=== PATIENT | female | born 1970 | race Caucasian/White ===

== ENCOUNTER 2022-11-22 10:07 | Emergency (ER) | payer OTHER, SELFPAY ==
--- NOTE | ~2022-11-22 | XR_ITS ---
EXAMINATION: XR shoulder RT min 2V INDICATION: Right shoulder pain TECHNIQUE: Four views of the right shoulder are submitted. COMPARISON: None FINDINGS: Normal alignment. No acute fracture. There is an old healed fracture of the right clavicle. 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 The glenohumeral joint is unremarka ble. Soft tissues are unremarkable. IMPRESSION: 1. No acute osseous abnormality. Reviewed, dictated and finalized at location A.
--- NOTE | ~2022-11-22 | XR_ITS ---
EXAMINATION: XR clavicle RT INDICATION: Right shoulder pain TECHNIQUE: Two views of the right clavicle are obtained. COMPARISON: 11/22/2022 FINDINGS: There is a chronic, healed fracture of the right clavicle with deformity. No acute fracture is identified. There is moderate osteoarthritis at the acromioclavicular joint. IMPRESSION: 1. No acute osseous abnormality. Reviewed, dictated and finalized at location A.
[2022-11-22 10:08] VITALS: BP 144/86; PULSE 91; RESP 16; TEMP 37; O2SAT 97
[2022-11-22] MEDS: HYDROcodone/acetaminophen (*CRX) 5-325 MG TABLET 1 TAB PO (11:19)
[2022-11-22] MEDS: KETOROLAC 30 MG/ML VIAL (*BKC) IM (11:20)
--- NOTE | 2022-11-22 11:21 | ED.GENADULT ---
HPI - General Adult General Chief complaint: Extremity Injury, Upper Stated complaint: right shoulder pain Time Seen by Provider: 11/22/22 10:37 History of Present Illness HPI narrative: Nell Man is a 52 y/o female who presents today with reports of having severe pain to her right clavicle/right shoulder that started suddenly 3 days ago when she attempted to put her heavy bag over her shoulder. She reports history of right clavicle fracture a few years ago. She reports the the pain has progressively worsened along with her ROM. Moving her arm makes her pain worse, she has not found anything that makes her pain better. Related Data Allergies Allergy/AdvReac Type Severity Reaction Status Date / Time amoxicillin Allergy Rash Verified 11/22/22 10:07 Review of Systems Review of Systems: CONSTITUTIONAL: Denies fever, chills, or sweats. EYES: Denies visual changes, redness, or discharge. ENT: Denies rhinorrhea, congestion, sore throat, or otalgia. CARDIOVASCULAR: Denies chest pain, palpitations, or edema. RESPIRATORY: Denies cough or dyspnea. GASTROINTESTINAL: Denies abdominal pain, nausea, vomiting, or diarrhea. GENITOURINARY: Denies dysuria or hematuria. SKIN: Denies rash or itching. MUSCULOSKELETAL: Denies back pain, Complains of right shoulder pain that is worse with movement and ROM NEUROLOGIC: Denies headache, numbness, dizziness, or weakness. PSYCHIATRIC: Denies anxiety or depression. Exam Narrative: GENERAL: Well-appearing, well-nourished, and in no acute distress. HEAD: Normocephalic, atraumatic. EYES: PERRLA and EOMI. ENT: Nares clear, no rhinorrhea or epistaxis. Mucous membranes moist. Oropharynx without tonsillar hypertrophy exudate or other lesions. Bilateral TMs pearly tam nonbulging NECK: Supple. No adenopathy or masses. No carotid bruits or JVD CHEST: Clear to auscultation. No respiratory distress. No wheezes rales or rhonchi HEART: Regular rate and rhythm. No murmur heard. Normal peripheral pulses. ABDOMEN: Soft, nontender, nondistended, normal active bowel sounds. EXTREMITIES: swelling noted around right shoulder, pain with palpation, ROM intact with elbow, distal pulses present, pain noted to distal right clavicle. SKIN: Warm, dry, no rash. NEURO: No focal deficits. Alert and oriented x3. PSYCH: Normal mood and affect. Course Vital Signs Vital signs: Vital Signs Temperature 37.0 C 11/22/22 10:08 Pulse Rate 91 11/22/22 10:08 Respiratory Rate 16 11/22/22 10:08 Blood Pressure 144/86 H 11/22/22 10:08 Pulse Oximetry 97 11/22/22 10:08 Temperature 37.0 C 11/22/22 10:08 Pulse Rate 91 11/22/22 10:08 Respiratory Rate 16 11/22/22 10:08 Blood Pressure 144/86 H 11/22/22 10:08 Pulse Oximetry 97 11/22/22 10:08 Medical Decision Making MDM Narrative Medical decision making narrative: swelling noted around right shoulder, pain with palpation, ROM intact with elbow, distal pulses present, pain noted to distal right clavicle. Denies being able to lift shoulder Denies any specific trauma before the pain started on Thursday 3 days ago. Lung sounds clear, No obvious erythema/ecchymosis noted. Plan to check x ray of clavicle and shoulder and treat her pain. Differential Diagnosis Differential Diagnosis: Concern for : Clavicle fracture/ shoulder dislocation/ rotator cuff injury/ Vital Signs Vital Signs: Vital Signs Temperature 37.0 C 11/22/22 10:08 Pulse Rate 91 11/22/22 10:08 Respiratory Rate 16 11/22/22 10:08 Blood Pressure 144/86 H 11/22/22 10:08 Pulse Oximetry 97 11/22/22 10:08 Temperature 37.0 C 11/22/22 10:08 Pulse Rate 91 11/22/22 10:08 Respiratory Rate 16 11/22/22 10:08 Blood Pressure 144/86 H 11/22/22 10:08 Pulse Oximetry 97 11/22/22 10:08 Vitals reviewed by me. Imaging Data My impression: Impressions Clavicle X-Ray 11/22/22 11:23 IMPRESSION: 1. No acute osseous abnormality. Carolyn
--- NOTE | 2022-11-22 11:23 | PC.NURSE ---
patient declined to take muscle relaxer due to concern that it would make her too drowsy.
== END 2022-11-22 12:39 | disposition home or self-care (01) ==
PROVIDERS: Emergency Provider Nurse Practitioner Family
DX: M19.011 Primary osteoarthritis, right shoulder (principal)
CPT/HCPCS: 73000; 73030; 96372; 99283; A9270; J1885

== ENCOUNTER 2024-03-23 11:30 | Emergency (ER) | payer OTHER, SELFPAY ==
--- NOTE | ~2024-03-23 | XR_ITS ---
EXAMINATION: XR chest 2V DATE: 03/23/2024 12:22 INDICATION: Central to left-sided chest pain. TECHNIQUE: Frontal and lateral views of the chest were obtained. COMPARISON: None. FINDINGS: Calcified bilateral lung nodules and calcified hilar and mediastinal lymph nodes are consis tent with old granulomatous disease. No pleural effusion or pneumothorax. The heart size is normal. T here is an old healed fracture of right clavicle. IMPRESSION: 1. No acute cardiopulmonary disease. Reviewed, dictated and finalized at location A.
--- NOTE | 2024-03-23 11:31 | ECG_ITS ---
Test Date: 2024-03-23 11:37:48 Measurements Intervals [place] Rate: 74 P: 62 NV: 159 QRS: 49 QRSD: 81 T: 42 QT: 368 QTc: 410 Interpretive Statements SINUS RHYTHM BASELINE ARTIFACT- I, III, AVR, AVL NORMAL ECG No previous ECG available for comparison Electronically Signed On 03-23-2024 11:47:01 CDT by Torito Phan D.O.
[2024-03-23 11:36] VITALS: BP 153/89; PULSE 86; RESP 16; TEMP 36.7; O2SAT 100
--- NOTE | 2024-03-23 11:43 | ED.CHESTPAIN ---
HPI - Chest Pain General Chief Complaint: Chest Pain Stated Complaint: CP Time Seen by Provider: 03/23/24 11:47 Patient with periodic chest pain since Thursday. Patient reports she was having sex felt her heart racing dyspnea chest pain substernal sometimes radiating underneath the left breast to the long time to calm down and return to normal. Throughout the day Thursday she had a return palpitations tachycardia chest pounding and dyspnea with mild exertion. Since then patient has had occasional brief episodes of central or under left breast chest tightness without diaphoresis dyspnea. These are not episodes related to activity and sometimes happen at rest. One also woke her up in the middle of the night randomly. Patient thinks she may be experiencing anxiety wants to get checked out. She does have significant Family history early CO multiple family members, mother of CO young as well. Source: patient Limitations: no limitations History of Present Illness HPI narrative: This is a 53-year-old female patient with past medical history of IBS is to emergency department complaining of intermittent chest pain she describes as a tightness ongoing for the last 5 days. Patient concerned because a family history 2 brothers with MIs under the age of 50, mother of CO age 73 and grandmother of CO at age 76. Initial episode was associated with dyspnea, ongoing episodes no dyspnea. No calf pain swelling warmth or erythema. MD complaint: chest pain and other (Chest tightness) Pertinent past history: other (IBS) Onset (ago): day(s) (5) Timing of current episode: episodic Prior episodes: No Onset: during exertion Pain location: lateral and other (Midsternal) Pain radiation: none Severity: moderate Quality: tightness Relieving factors: nothing Exacerbating factors: nothing Context: other (No recent illness) Associated symptoms: palpitations Treatment prior to arrival: none Risk Factors Coronary artery disease risk factors: none Thoracic aortic dissection risk factors: none Related Data Allergies Allergy/AdvReac Type Severity Reaction Status Date / Time amoxicillin Allergy Rash Verified 11/22/22 10:07 Review of Systems Review of Systems: All systems reviewed & are unremarkable except as noted in HPI and below PMFSH Past Medical History Medical History IBS (irritable bowel syndrome) Family History Family History Mother Acute myocardial infarction Sibling Acute myocardial infarction Grandparent Acute myocardial infarction Sibling Acute myocardial infarction Exam Narrative: GENERAL: Well-appearing, well-nourished, and in no acute distress. HEAD: Normocephalic, atraumatic. ENT:? Mucous membranes moist. CHEST: Clear to auscultation.? No respiratory distress. HEART: Regular rate and rhythm. ? Normal peripheral pulses. ABDOMEN: Soft, nontender, nondistended. EXTREMITIES: Normal range of motion. No peripheral edema. Negative Homans SKIN: Warm dry normal color NEURO: Alert and oriented x3. PSYCH: Normal mood and affect Course Course Emergency Course: EKG obtained showing sinus rhythm no STEMI. Cardiac labs obtained from triage. Lab results are all unremarkable noncontributory. No evidence of congestive heart failure. Chest x-ray with calcified nodules consistent with old granulomatous disease but no active disease. Suspect patient is experiencing either paroxysmal tachy dysrhythmia verses anxiety related recurrence of pain. Will recommend Holter monitor verses 30 day event monitor per primary care. Vital Signs Vital signs: Vital Signs Temperature 36.7 C 03/23/24 11:36 Pulse Rate 86 03/23/24 11:36 Respiratory Rate 16 03/23/24 11:36 Blood Pressure 153/89 H 03/23/24 11:36 Pulse Oximetry 100 03/23/24 11:36 Oxygen Delivery Room Air 03/23/24 11:36
[2024-03-23 12:00] LABS: Basophils Percent Auto 0.3 % (0.2-1.2); Eosinophils Absolute Auto 0.1 K/mm3 (0-0.3); Eosinophils Percent Auto 0.8 % (0-4.4); Hematocrit 44.6 % (37.0-47.0); Hemoglobin 15.4 g/dL (12.0-15.0); Immature Granulocyte Absolute 0.01 K/mm3 (0.00-0.031); Immature Granulocyte Percent A 0.2 % (0-0.5); Lymphocytes Absolute Auto 1.53 K/mm3 (0.9-3.2); Mean Corpuscular HGB Conc 34.5 g/dl (32-36); Mean Corpuscular Hemoglobin 31.3 pg (26-34); Mean Corpuscular Volume 90.7 fl (80-100); Mean Platelet Volume 10.7 fl (7.4-10.4); Monocytes Absolute Auto 0.4 K/mm3 (0.1-0.6); Monocytes Percent Auto 5.9 % (2.6-8.5); Neutrophils Absolute Auto 3.9 K/mm3 (1.3-6.7); Neutrophils Percent Auto 66.8 % (45.5-73.1); Platelet Count Result 343 k/mm3 (150-375); Red Blood Count 4.92 M/mm3 (4.2-5.4); Red Cell Distribution Width 11.4 % (11.5-14.5); White Blood Count 5.9 K/mm3 (4.5-10.0)
[2024-03-23 12:10] LABS: INR 0.9; Prothrombin Time 12.5 Seconds (11.1-14.7)
[2024-03-23 12:11] LABS: Partial Thromboplastin Time 26.6 Seconds (22.3-36.8)
[2024-03-23 12:14] LABS: Alanine Aminotransferase 25 U/L (6-35); Albumin Level 4.6 g/dL (3.5-5.1); Alkaline Phosphatase 89 U/L (38-126); Anion Gap 11 mmol/L (4-12); Aspartate Amino Transferase 27 U/L (14-36); Bilirubin,Total 0.7 mg/dL (0.2-1.3); Blood Urea Nitrogen 13 mg/dL (7-17); Calcium 9.3 mg/dL (8.4-10.2); Carbon Dioxide 26 mmol/L (22-30); Chloride 101 mmol/L (98-107); Estimated CRCL calculation 68 ml/min; Estimated Glomerular Filt Rate > 60; Glucose 92 mg/dL (65-110); Lipase 52 U/L (23-300); Sodium 138 mmol/L (137-145)
[2024-03-23 12:25] LABS: Troponin I < 0.012 ng/mL (0.000-0.034)
[2024-03-23 12:57] VITALS: PULSE 76
[2024-03-23 12:58] VITALS: BP 126/74; PULSE 78; RESP 16; O2SAT 98
== END 2024-03-23 13:01 | disposition home or self-care (01) ==
PROVIDERS: Physician Assistant; Emergency Provider Nurse Practitioner
DX: R07.89 Other chest pain (principal)
CPT/HCPCS: 36415; 71046; 80053; 83690; 84484; 85025; 85610; 85730; 93005; 99284